=== PATIENT | female | born 1945 | race Caucasian/White ===

== ENCOUNTER → 2017-02-20 | Outpatient (CLI) | payer MEDICARE, BC | LOC: MAMO 10:56 | DX: Z85.3 Personal history of malignant neoplasm of breast (principal) | CPT/HCPCS: G0206 ==

== ENCOUNTER → 2020-10-18 | Outpatient (CLI) | payer MEDICARE, BC ==
[2020-10-18 08:42] LABS: HEMOGLOBIN 14.1 gm/dl (12.3-15.3); RED BLOOD COUNT 4.59 M/UL (4.00-5.10); WHITE BLOOD COUNT 9.2 K/UL (4.5-11.0)
[2020-10-18 09:09] LABS: BUN/CREATININE RATIO 18 (0-10)
== END ==
LOC: LAB 08:01
PROVIDERS: Nurse Practitioner
DX: E11.9 Type 2 diabetes mellitus without complications (principal); E55.9 Vitamin D deficiency, unspecified; E03.9 Hypothyroidism, unspecified; M25.561 Pain in right knee
CPT/HCPCS: 36415; 80053; 80061; 82043; 82570; 83036; 84436; 84443; 84480; 85025

== ENCOUNTER → 2021-01-17 | Outpatient (CLI) | payer MEDICARE, BC ==
[2021-01-17 09:21] LABS: BUN/CREATININE RATIO 21 (0-10)
[2021-01-18 08:14] LABS: THYROXINE (T4) 6.9 ug/dL (4.5-12.0); VITAMIN D, 25-HYDROXY 29.2 ng/mL (30.0-100.0)
[2021-01-18 10:14] LABS: CREATININE, URINE 59.4 mg/dL (Not Estab.)
== END ==
LOC: LAB 08:24
PROVIDERS: Nurse Practitioner
DX: E11.9 Type 2 diabetes mellitus without complications (principal); R53.83 Other fatigue; I10 Essential (primary) hypertension
CPT/HCPCS: 36415; 80053; 82043; 82570; 83036; 84436; 84443; 84480

== ENCOUNTER → 2021-04-28 | Outpatient (CLI) | payer MEDICARE, BC ==
[2021-04-28 11:21] LABS: HEMOGLOBIN 14.5 gm/dl (12.3-15.3); RED BLOOD COUNT 4.63 M/UL (4.00-5.10); WHITE BLOOD COUNT 8.2 K/UL (4.5-11.0)
[2021-04-28 12:07] LABS: BUN/CREATININE RATIO 16 (0-10)
== END ==
LOC: LAB 08:54
PROVIDERS: Nurse Practitioner
DX: M54.9 Dorsalgia, unspecified (principal); E11.9 Type 2 diabetes mellitus without complications; E55.9 Vitamin D deficiency, unspecified; I10 Essential (primary) hypertension; E78.5 Hyperlipidemia, unspecified; R53.83 Other fatigue
CPT/HCPCS: 36415; 73502; 80053; 83036; 85025

== ENCOUNTER → 2021-06-16 | Outpatient (CLI) | payer MEDICARE, BC | LOC: EMI 08:10 | DX: M25.551 Pain in right hip (principal) | CPT/HCPCS: 73721 ==

== ENCOUNTER → 2021-08-09 | Outpatient (CLI) | payer MEDICARE, BC ==
[2021-08-09 08:32] LABS: HEMOGLOBIN 14.2 gm/dl (12.3-15.3); RED BLOOD COUNT 4.59 M/UL (4.00-5.10); WHITE BLOOD COUNT 7.9 K/UL (4.5-11.0)
[2021-08-09 10:00] LABS: BUN/CREATININE RATIO 15 (0-10)
== END ==
LOC: LAB 07:49
PROVIDERS: Nurse Practitioner
DX: E11.9 Type 2 diabetes mellitus without complications (principal); E55.9 Vitamin D deficiency, unspecified; I10 Essential (primary) hypertension; E78.5 Hyperlipidemia, unspecified; R53.83 Other fatigue
CPT/HCPCS: 36415; 80053; 83036; 85025

== ENCOUNTER → 2021-11-09 | Outpatient (CLI) | payer MEDICARE, BC ==
[2021-11-10 07:11] LABS: BILIRUBIN, TOTAL 0.4 mg/dL (0.0-1.2); CALCIUM, SERUM 9.4 mg/dL (8.7-10.3); CREATININE, SERUM 0.86 mg/dL (0.57-1.00); GLOBULIN, TOTAL 2.4 g/dL (1.5-4.5); POTASSIUM, SERUM 4.5 mmol/L (3.5-5.2); PROTEIN, TOTAL, SERUM 7.1 g/dL (6.0-8.5)
[2021-11-10 09:15] LABS: VITAMIN D, 25-HYDROXY 45.6 ng/mL (30.0-100.0)
== END ==
LOC: LAB 08:18
PROVIDERS: Nurse Practitioner Family
DX: I10 Essential (primary) hypertension (principal); E55.9 Vitamin D deficiency, unspecified; E78.5 Hyperlipidemia, unspecified; E11.9 Type 2 diabetes mellitus without complications
CPT/HCPCS: 36415; 80053